=== PATIENT | male | born 1990 | race Two or more races ===

== ENCOUNTER 2019-05-26 00:09 | Emergency (ER) | payer MEDICAID ==
[~2019-05-26] VITALS: Ht 185.4 cm; Wt 70.3 kg
[2019-05-26 02:28] LABS: Basophils # (auto) 0.1 uL; Basophils % (auto) 0.6 % (0.0-2.0); Eosinophils # (auto) 0.5 uL; Eosinophils % (auto) 4.3 % (0.0-7.0); Hematocrit 45.2 % (41.0-53.0); Hemoglobin 15.4 g/dL (13.5-17.5); Lymphocytes % (auto) 25.8 % (10.0-50.0); Mean Corpuscular Hemoglobin 31.8 pg (28.0-32.0); Mean Corpuscular Hgb Conc. 34.1 g/dL (32.0-36.0); Mean Corpuscular Volume 93.2 fL (80.0-100.0); Monocytes # (auto) 1.1 uL; Monocytes % (auto) 9.8 % (0.0-12.0); Neutrophils # (auto) 6.8 uL; Neutrophils % (auto) 59.5 % (37.0-80.0); Nucleated Red Blood Cells % 0.1 %; Platelet Count (auto) 278 10^3/uL (140-450); Red Blood Cells 4.85 10^6/uL (4.5-5.90); Red Cell Distribution Width 13.1 % (11.8-14.3); White Blood Cell 11.5 10^3/uL (4.4-10.8)
[2019-05-26 02:48] LABS: BUN/Creatinine Ratio 17.9; Calcium 8.7 mg/dL (8.5-10.1); Potassium 4.1 mmol/L (3.5-5.1)
[2019-05-26] MEDS ORDERED: ONDANSETRON HCL 4 MG/2 ML VIAL IV ONE (03:00)
[2019-05-26] MEDS ORDERED: TETANUS-DIPTH-ACEL PERTUSSIS 0.5ML SYRG IM ONE (03:00)
[2019-05-26] MEDS ORDERED: CLINDAMYCIN 600MG IV 50 ML IV ONE (03:00)
[2019-05-26] MEDS ORDERED: MORPHINE SULFATE 4 MG/ML SYR/VIAL IV ONE (03:00)
[2019-05-26 03:37] VITALS: BP 119/84
== END 2019-05-26 03:52 | disposition home or self-care (01) ==
LOC: ER 00:16
DX: S60.512A Abrasion of left hand, initial encounter (principal); L03.114 Cellulitis of left upper limb; F17.210 Nicotine dependence, cigarettes, uncomplicated; W55.03XA Scratched by cat, initial encounter; Y93.89 Activity, other specified; Y92.89 Other specified places as the place of occurrence of the external cause; Y99.8 Other external cause status
CPT/HCPCS: 36415; 73130; 80048; 85025; 90471; 90715; 96365; 96375; 99284; J2270; J2405; J3490

== ENCOUNTER 2019-09-21 11:13 | Emergency (ER) | payer MEDICAID ==
[~2019-09-21] VITALS: Ht 185.4 cm; Wt 83.0 kg
[2019-09-21 11:34] VITALS: BP 138/82
[2019-09-21] MEDS ORDERED: HYDROcodone-ACET 7.5/325MG TAB PO ONE (11:45)
== END 2019-09-21 13:29 | disposition home or self-care (01) ==
LOC: ER 11:13
DX: S42.002A Fracture of unspecified part of left clavicle, initial encounter for closed fracture (principal); R51 Headache; R42 Dizziness and giddiness; V86.96XA Unspecified occupant of dirt bike or motor/cross bike injured in nontraffic accident, initial encounter; Y93.89 Activity, other specified; Y92.410 Unspecified street and highway as the place of occurrence of the external cause; Y99.8 Other external cause status
CPT/HCPCS: 70450; 71111; 73030

== ENCOUNTER 2021-10-06 11:16 | Emergency (ER) | payer MEDICAID ==
[~2021-10-06] VITALS: Ht 182.9 cm; Wt 81.6 kg
[2021-10-06] MEDS ORDERED: IBUP800T26 PO (11:43)
[2021-10-06] MEDS ORDERED: AMOX-277 PO (11:43)
[2021-10-06] MEDS ORDERED: KETOROLAC TROMETH 60MG/2ML VIAL IM ONE (11:45)
[2021-10-06] MEDS ORDERED: cefTRIAXone W LIDOCAINE 1 GM IM IM ONE (11:45)
[2021-10-06] MEDS ORDERED: cefTRIAXone SOD 1,000 MG VL ONE (11:46)
[2021-10-06 12:00] VITALS: BP 128/81
== END 2021-10-06 12:23 | disposition home or self-care (01) ==
LOC: ER 11:16
DX: K04.7 Periapical abscess without sinus (principal); F12.10 Cannabis abuse, uncomplicated; F15.10 Other stimulant abuse, uncomplicated
CPT/HCPCS: 96372; 99283; J0696; J1885

== ENCOUNTER 2021-10-10 13:10 | Emergency (ER) | payer MEDICAID ==
[~2021-10-10] VITALS: Ht 185.4 cm; Wt 81.6 kg
[~2021-10-10 13:10] MED LIST: AMOX-277 PO; IBUP800T26 PO
[2021-10-10 13:45] VITALS: BP 127/85
[2021-10-10] MEDS ORDERED: CLINDAMYCIN 900MG IV 50 ML IV ONE (13:45)
[2021-10-10] MEDS ORDERED: KETOROLAC TROMETH 30 MG/ML 1ML VIAL IV ONE (13:45)
[2021-10-10 13:59] LABS: Basophils # (auto) 0.1 10 ^3/uL (0-0.2); Basophils % (auto) 0.4 % (0.0-2.0); Eosinophils # (auto) 0.2 10 ^3/uL (0-0.8); Eosinophils % (auto) 1.5 % (0.0-7.0); Hematocrit 44.9 % (41.0-53.0); Hemoglobin 15.2 g/dL (13.5-17.5); Lymphocytes # (auto) 1.8 10 ^3/uL (0.4-5.4); Lymphocytes % (auto) 11.4 % (10.0-50.0); Mean Corpuscular Hemoglobin 31.2 pg (28.0-32.0); Mean Corpuscular Hgb Conc. 33.8 g/dL (32.0-36.0); Mean Corpuscular Volume 92.4 fL (80.0-100.0); Monocytes # (auto) 1.6 10 ^3/uL (0-1.3); Monocytes % (auto) 10.1 % (0.0-12.0); Neutrophils % (auto) 76.6 % (37.0-80.0); Nucleated Red Blood Cells % 0.1 %; Red Blood Cells 4.86 10^6/uL (4.5-5.90); Red Cell Distribution Width 13.6 % (11.8-14.3); White Blood Cell 15.7 10^3/uL (4.4-10.8)
[2021-10-10 14:24] LABS: Albumin 3.5 g/dL (3.4-5.0); Calcium 9.5 mg/dL (8.5-10.1); Potassium 3.9 mmol/L (3.5-5.1)
[2021-10-10 14:29] LABS: BUN/Creatinine Ratio 8.9; Bilirubin, Total 0.6 mg/dL (0.2-1.0); Total Protein 8.6 g/dL (6.4-8.2)
[2021-10-10] MEDS ORDERED: IOHEXOL 300 MG/ML 100ML BOTTLE IJ ONE (15:10)
[2021-10-10] MEDS ORDERED: CLIN300C8 PO (17:12)
== END 2021-10-10 18:13 | disposition home or self-care (01) ==
LOC: ER 13:10
DX: K04.7 Periapical abscess without sinus (principal); F12.10 Cannabis abuse, uncomplicated; F17.210 Nicotine dependence, cigarettes, uncomplicated; Z79.1 Long term (current) use of non-steroidal anti-inflammatories (NSAID); Z79.2 Long term (current) use of antibiotics
CPT/HCPCS: 36415; 70487; 80053; 85025; 96365; 96375; 99285; J1885; J3490; Q9967

== ENCOUNTER 2024-03-04 03:07 | Emergency (ER) | payer MEDICAID ==
[~2024-03-04] VITALS: Ht 188 cm; Wt 65.9 kg
[~2024-03-04 03:07] MED LIST changes: -AMOX-277 PO; +AMOX875T4 PO; +CLIN1CAP70 PO; +IBUP-1455 PO; -IBUP800T26 PO
[2024-03-04] MEDS ORDERED: IBUP-1456 PO (03:38)
[2024-03-04 06:20] VITALS: BP 116/68; PULSE 99; RESP 16; TEMP 98.6; O2SAT 100
== END 2024-03-04 06:33 | disposition home or self-care (01) ==
LOC: ER 03:07
DX: S83.91XA Sprain of unspecified site of right knee, initial encounter (principal); F17.210 Nicotine dependence, cigarettes, uncomplicated; F12.10 Cannabis abuse, uncomplicated; X58.XXXA Exposure to other specified factors, initial encounter; Y93.89 Activity, other specified; Y92.89 Other specified places as the place of occurrence of the external cause; Y99.8 Other external cause status
CPT/HCPCS: 29505; 73562